=== PATIENT | female | born 2000 | race Caucasian/White ===

== ENCOUNTER 2019-01-18 01:28 | Emergency (ER) | payer OTHER ==
[~2019-01-18] VITALS: Ht 167.6 cm; Wt 70.5 kg
[2019-01-18] MEDS ORDERED: PREN1TAB11 PO (01:45)
[2019-01-18 03:38] LABS: BASO # 0.1 10^3/uL (0.0-0.2); BASO % 0.6 % (0.0-1.0); EOS # 0.2 10^3/uL (0.0-0.5); EOS % 2.4 % (0.0-3.0); HEMATOCRIT 36.5 % (36.0-47.0); HEMOGLOBIN 11.9 g/dl (12.0-15.5); LYMPH # 2.8 10^3/uL (1.5-5.0); LYMPH % 36.1 % (24.0-44.0); MEAN CORPUSCULAR HEMOGLOBIN 28.2 pg (27.0-33.0); MEAN CORPUSCULAR HGB CONC 32.6 g/dl (32.0-36.5); MEAN CORPUSCULAR VOLUME 86.5 fl (80.0-96.0); MONO # 0.5 10^3/uL (0.0-0.8); MONO % 6.5 % (0.0-5.0); NEUTROPHILS # 4.3 10^3/uL (1.5-8.5); NEUTROPHILS % 54.1 % (36.0-66.0); PLATELET COUNT, AUTOMATED 201 10^3/uL (150-450); RED BLOOD COUNT 4.22 10^6/uL (4.00-5.40); WHITE BLOOD COUNT 7.9 10^3/uL (4.0-10.0)
[2019-01-18 04:00] LABS: ACETAMINOPHEN LEVEL < 2.0 UG/ML (10.0-30.0); BLOOD UREA NITROGEN 13 MG/DL (7-18); CALCIUM LEVEL 8.5 MG/DL (8.5-10.1); CARBON DIOXIDE LEVEL 27 MEQ/L (21-32); CHLORIDE LEVEL 108 MEQ/L (98-107); CREATININE FOR GFR 0.71 MG/DL (0.55-1.30); GLUCOSE, FASTING 99 MG/DL (70-100); POTASSIUM SERUM 3.7 MEQ/L (3.5-5.1); SALICYLATE LEVEL < 1.7 MG/DL (5.0-30.0); SODIUM LEVEL 142 MEQ/L (136-145)
[2019-01-18 04:01] LABS: APPEARANCE, URINE HAZY (CLEAR); BACTERIA, URINE AUTO NEGATIVE (NEGATIVE); BILIRUBIN, URINE AUTO NEGATIVE (NEGATIVE); BLOOD, URINE BLOOD NEGATIVE (NEGATIVE); COLOR, URINE YELLOW (YELLOW); GLUCOSE, URINE (UA) AUTO NEGATIVE (NEGATIVE); KETONE, URINE AUTO NEGATIVE (NEGATIVE); LEUKOCYTE ESTERASE, URINE AUTO NEGATIVE (NEGATIVE); MUCUS, URINE SMALL (NEGATIVE); NITRITE, URINE AUTO NEGATIVE (NEGATIVE); PROTEIN, URINE AUTO NEGATIVE (NEGATIVE); RBC, URINE AUTO 3 /HPF (0-3); SPECIFIC GRAVITY URINE AUTO 1.031 (1.002-1.035); SQUAMOUS EPITHELIAL CELL UR AU 5 /HPF (0-6); UROBILINOGEN, URINE AUTO 0.2 mg/dL (0.0-2.0); WBC, URINE AUTO 1 /HPF (0-3)
--- NOTE | 2019-01-18 04:42 | REPVR ---
PROCEDURE INFORMATION: Exam: US Pelvis Complete, Transabdominal Exam date and time: 01/18/19 (3:56am) Age: 18 years old Clinical history: Right adnexal pain TECHNIQUE: Imaging protocol: Real-time transabdominal pelvic ultrasound with image documentation. Complete examination. COMPARISON: No relevant prior studies available FINDINGS: The LMP is reported to be: 12/31/18 The uterus is retroflexed, measuring 9.5 x 4.4 x 5.7 cm in dimensions. No uterine mass is seen. The endometrium is thickened (17 mm thickness). The right ovary measures 4.5 x 2.9 x 2.9 cm in size. The left ovary measures 4.7 x 3.2 x 2.6 cm in size. There is no evidence of ovarian torsion on Doppler evaluation. No free pelvic fluid is seen. No solid adnexal masses. The urinary bladder is empty. IMPRESSION: No acute pelvic pathology. No solid pelvic mass. No fluid collections. Thickened endometrium (17 mm thickness). The ovaries are unremarkable, with no evidence of torsion. Electronically signed by: Ana Velasco On 01/18/2019 04:41:21 AM
[2019-01-18 05:04] LABS: CHLAMYDIA DNA AMPLIFICATION NEGATIVE (NEGATIVE); GC DNA AMPLIFICATION NEGATIVE (NEGATIVE)
[2019-01-18] MEDS ORDERED: FLAG500T PO (05:17)
[2019-01-18 05:27] VITALS: BP 118/71
--- NOTE | 2019-01-18 16:38 | ED PDOC ---
Post-Departure Follow-Up ft [facility] faxed fola report of pelvic us for fu Marjorie Carpenter MD Jan 18, 2019 16:38
== END 2019-01-18 05:29 | disposition home or self-care (01) ==
LOC: M ED 01:28
DX: N76.0 Acute vaginitis (principal); Z79.899 Other long term (current) drug therapy
CPT/HCPCS: 76856; 80048; 81001; 85025; 87086; 87210; 87491; 87591; 93976; 99283; G0480